=== PATIENT | female | born 1990 | race Caucasian/White ===

== ENCOUNTER 2018-02-16 08:41 | Day surgery (SDC) | payer OTHER ==
[2018-02-14 18:51] VITALS: BMI 28.1
[2018-02-16 09:21] VITALS: BP 106/66; PULSE 99; TEMP 98
== END 2018-02-16 10:10 | disposition home or self-care (01) ==
LOC: JASUSAT 08:41
PROVIDERS: ATTEND Surgery Vascular Surgery
PROC: 0GBH0ZZ Excision of Right Thyroid Gland Lobe, Open Approach (ICD-10-PCS; principal; 2018-02-16)
DX: Z53.8 Procedure and treatment not carried out for other reasons (principal)
CPT/HCPCS: 84703